=== PATIENT | male | born 1945 ===

== ENCOUNTER → 2024-05-26 | Day surgery (SDC) | payer MEDICARE ==
[~2024-05-26] MED LIST: CLOPIDOGREL 75 MG TAB ONE; HEPARIN SODIUM 1,000 UN/ML (10ML VL) ONE; HEPARIN SODIUM,PORCINE 10,000 UNIT/ML 1 ML VIAL ONE; LIDOCAINE 1% INJ 10MG/ML (20 ML MDV) ONE; MIDAZOLAM 2 MG/2 ML VIAL ONE; NITROGLYCERIN-D5W PMX 25 MG/250 ML BTL IV ONE; SODIUM CHLORIDE 0.9% 1,000 ML BAG ONE; VERAPAMIL 2.5 MG/ML 2 ML AMP ONE
[2024-05-26] MEDS: IOPAMIDOL-370 100ML BTL INJ ONE ×2 (12:52)
== END ==
LOC: CATHCVL 11:00
PROVIDERS: ATTEND Internal Medicine Interventional Cardiology
DX: I25.10 Atherosclerotic heart disease of native coronary artery without angina pectoris (principal)
CPT/HCPCS: 80048; 85025; 92972; 92978; 93799